=== PATIENT | male | born 1995 | race Caucasian/White ===

== ENCOUNTER 2021-05-25 17:43 | Emergency (ER) | payer SELFPAY ==
--- NOTE | 2021-05-25 18:28 | ER ---
Nurse's Notes [facility] Name: Sonu Clarke Age: 26 yrs Sex: Male : 1995 Arrival Date: 05/25/2021 Time: 17:44 Bed 6 Private MD: Diagnosis: Epileptic seizures related to external causes, not intractable Presentation: 05/25 17:44 Chief complaint: EMS states: "pt had 2 seizures about 30 min ago. pt was still waking jd3 up when we got there and was slightly post ictal on our arrival, but was fully awake when by the time we got here. he was initially not going to come because he does not like needles, but agreed to come after talking with family. he has a history of seizures and has not had one in 3-4 years. his doctor told him last time he had a seizure is that they are caused by stress.". Coronavirus screen: At this time, the client does not indicate any symptoms associated with coronavirus-19. Ebola Screen: No symptoms or risks identified at this time. Initial Sepsis Screen: Does the patient meet any 2 criteria? No. Patient's initial sepsis screen is negative. Does the patient have a suspected source of infection? No. Patient's initial sepsis screen is negative. Risk Assessment: Do you want to hurt yourself or someone else? Patient reports no desire to harm self or others. Onset of symptoms was May 25, 2021. 17:44 Method Of Arrival: EMS: [facility] jd3 17:44 Acuity: NELSON 3 jd3 Historical: - Allergies: 17:50 No Known Allergies; jd3 - Home Meds: 17:50 None [Active]; jd3 - PMHx: 17:50 Seizure; jd3 - PSHx: 17:50 right hand; jd3 - Immunization history:: Adult Immunizations up to date, Client reports having NOT received the Covid vaccine. Flu vaccine status is unknown. - Social history:: Smoking status: Reported history of juuling and/or vaping. - Family history:: not pertinent. - Hospitalizations: : No recent hospitalization is reported. Screenin:15 Abuse screen: Denies threats or abuse. Nutritional screening: No deficits noted. jd3 Tuberculosis screening: No symptoms or risk factors identified. Fall Risk Ambulatory Aid- None/Bed Rest/Nurse Assist (0 pts). Gait- Normal/Bed Rest/Wheelchair (0 pts) Mental Status- Oriented to own ability (0 pts). Total Mcghee Fall Scale indicates No Risk (0-24 pts). Assessment: 18:13 General: Appears comfortable, Behavior is cooperative, appropriate for age, anxious. jd3 Pain: Denies pain. Neuro: Level of Consciousness is awake, alert, obeys commands, Oriented to person, place, time, situation. Cardiovascular: Capillary refill < 3 seconds Patient's skin is warm and dry. Rhythm is regular. Respiratory: Airway is patent Respiratory effort is even, unlabored, Respiratory pattern is regular, symmetrical, Denies cough, shortness of breath. GI: No signs and/or symptoms were reported involving the gastrointestinal system. : No signs and/or symptoms were reported regarding the genitourinary system. EENT: No signs and/or symptoms were reported regarding the EENT system. Derm: Skin is intact, Skin is dry, Skin is normal, Skin temperature is warm. Musculoskeletal: Circulation, motion, and sensation intact. Range of motion: intact in all extremities. 18:16 Reassessment: Patient is alert, oriented x 3, equal unlabored respirations, skin jd3 warm/dry/pink. pt reported anxiety about receiving a blood draw and IV. pt reporting to wanting to go home. AMA form signed. pt walked to front of ER with even and steady gait. family/friends waiting for pt in ER parking lot. Vital Signs: 17:51 BP 135 / 96; Pulse 86; Resp 15 S; Temp 98.5(O); Pulse Ox 100% on R/A; Weight 63.5 kg jd3 (R); Height 5 ft. 4 in. (162.56 cm) (R); Pain 0/10; 17:51 Body Mass Index 24.03 (63.50 kg, 162.56 cm) jd3 ED Course: 17:44 Patient arrived in ED. jd3 17:49 Triage completed. jd3 17:50 Donald San MD is Attending Physician. rn 17:51 Arm band placed on. jd3 18:13 Giuliano Laurent RN is Primary Nurse. jd3 18:15 Patient has correct armband on for positive identification. Bed in low position. Call j light in reach. Side rails up X 1. Adult w/ patient. musical instrument maker on. Pulse ox on. NIBP on. 18:15 No provider procedures requiring assistance completed. Patient did not have IV access jd3 during this emergency room visit. 18:32 Primary Nurse role handed off by Giuliano Laurent RN 18:32 Espinoza Mendoza MD is Referral Physician. rn Administered Medications: No medications were administered Outcome: 18:16 AMA AMA form signed jd3 18:16 Condition: stable 18:16 Instructed on follow up and referral plans. 18:27 Patient left the ED. jh6 18:32 Patient left the ED. jd3 Signatures: Donald San MD MD rn Smirch, Shelby, RN RN Giuliano Laurent RN RN jd3 Hastedt, Jennifer, RN RN [facility] Corrections: (The following items were deleted from the chart) 17:51 17:50 PMHx: None; jd3 jd3
--- NOTE | 2021-05-25 18:28 | EDPHYS ---
Physician Documentation [facility] Name: Sonu Clarke Age: 26 yrs Sex: Male : 1995 Arrival Date: 05/25/2021 Time: 17:44 Bed 6 Private MD: ED Physician Donald San HPI: 05/25 18:03 This 26 yrs old Male presents to ER via EMS with complaints of Probable Seizure. rn 18:03 The patient presents with a history of multiple seizures, a total of 2. Character of rn seizure(s): Loss of consciousness: it is not known if the patient experienced loss of consciousness, Motor activity: generalized, Incontinence: none, Apnea: the patient did not experience apnea, Circulation: the patient did not experience evidence of pulse disturbance, Eye movements:. Seizure onset: just prior to arrival. Associated injury: The patient did not suffer any apparent associated injury. Current symptoms: Currently, the patient is not experiencing any symptoms. The patient has experienced similar episodes in the past. The patient has not recently seen a physician. EMS reports seizure, possibly 2, prior to arrival. Pt has history of seizure, happened before a few years ago, told stress-induced. Has been under a lot of stress lately. No trauma. Feels better now. Never placed on medication. Reports broken up with recently and his son is possibly going to be taken away from him. . Historical: - Allergies: 17:50 No Known Allergies; jd3 - Home Meds: 17:50 None [Active]; jd3 - PMHx: 17:50 Seizure; jd3 - PSHx: 17:50 right hand; jd3 - Immunization history:: Adult Immunizations up to date, Client reports having NOT received the Covid vaccine. Flu vaccine status is unknown. - Social history:: Smoking status: Reported history of juuling and/or vaping. - Family history:: not pertinent. - Hospitalizations: : No recent hospitalization is reported. ROS: 18:03 Constitutional: Negative for fever, chills, and weight loss, Eyes: Negative for injury, rn pain, redness, and discharge, ENT: Negative for injury, pain, and discharge, Neck: Negative for injury, pain, and swelling, Cardiovascular: Negative for chest pain, palpitations, and edema, Respiratory: Negative for shortness of breath, cough, wheezing, and pleuritic chest pain, Abdomen/GI: Negative for abdominal pain, nausea, vomiting, diarrhea, and constipation, Back: Negative for injury and pain, : Negative for injury, bleeding, discharge, and swelling, MS/Extremity: Negative for injury and deformity, Skin: Negative for injury, rash, and discoloration, Neuro: Negative for headache, weakness, numbness, tingling Exam: 18:03 Constitutional: This is a well developed, well nourished patient who is awake, alert, rn and in no acute distress. Using cell phone. Head/Face: Normocephalic, atraumatic. Eyes: Pupils equal round and reactive to light, extra-ocular motions intact. Neck: Trachea midline, no thyromegaly or masses palpated, and no cervical lymphadenopathy. Supple, full range of motion without nuchal rigidity, or vertebral point tenderness. No Meningismus. Cardiovascular: Regular rate and rhythm. No pulse deficits. Respiratory: No increased work of breathing, no retractions or nasal flaring. Abdomen/GI: Soft, non-tender Skin: Warm, dry with normal turgor. Normal color with no rashes, no lesions, and no evidence of cellulitis. MS/ Extremity: Pulses equal, no cyanosis. Neurovascular intact. Full, normal range of motion. Equal circumference. Neuro: Awake and alert, GCS 15, oriented to person, place, time, and situation. Cranial nerves II-XII grossly intact. Motor strength 5/5 in all extremities. Sensory grossly intact. Cerebellar exam normal. Vital Signs: 17:51 BP 135 / 96; Pulse 86; Resp 15 S; Temp 98.5(O); Pulse Ox 100% on R/A; Weight 63.5 kg jd3 (R); Height 5 ft. 4 in. (162.56 cm) (R); Pain 0/10; 17:51 Body Mass Index 24.03 (63.50 kg, 162.56 cm) jd3 MDM: 17:50 Patient medically screened. rn 18:03 ED course: Pt refused IV, is going to contact family to either pick him up or tell him rn what he should do. States is scared of needles. Reports CT head last time he had a seizure was "normal".. 05/26 08:24 Differential diagnosis: seizure. Data reviewed: vital signs, nurses notes. Response to rn treatment: the patient's symptoms have resolved after treatment. Administered Medications: No medications were administered Disposition Summary: 05/25/21 18:27 Left Against Medical Advice Location: Home [facility] Condition: Stable [facility] Problem: new rn Symptoms: have improved rn Diagnosis - Epileptic seizures related to external causes, not intractable rn Followup: rn - With: Espinoza Mendoza MD - When: As needed - Reason: Recheck today's complaints, Re-evaluation by your physician Discharge Instructions: - Discharge Summary Sheet rn - Seizure, Adult rn Signatures: Donald San MD MD rn Davies, Jonathon, RN RN jd3 Heather Maradiaga RN RN jh6 Corrections: (The following items were deleted from the chart) 05/25 17:51 17:50 PMHx: None; minda perla
[2021-05-25 19:10] VITALS: BP 135/96; TEMP 98.5; O2SAT 100
== END 2021-05-25 18:32 | disposition left against medical advice (07) ==
LOC: ER 17:43
DX: G40.509 Epileptic seizures related to external causes, not intractable, without status epilepticus (principal)
CPT/HCPCS: 99284